=== PATIENT | male | born 1965 | race African-American/Black ===

== ENCOUNTER 2016-11-24 16:43 | Inpatient (IN) ==
[2016-11-24] MEDS ORDERED: cefTRIAXone 1,000 MG in SODIUM CHLORIDE 0.9% 100 ML IV STA (19:56)
[2016-11-24 20:01] LABS: Basophils % 0.2 % (0.0-0.8); Eosinophils % 0.4 % (0.00-10.9); Hematocrit 28.2 VOL% (42.0-52.0); Hemoglobin 9.5 GM/DL (14.0-18.0); Immature Granulocytes % 0.6 %; Immature Granulocytes Absolute 0.06 #; Lymphocytes # 2.4 10*3/uL (1.4-4.0); Lymphocytes % 23.1 % (21.2-54.2); Mean Corpuscular HGB Conc 33.7 GM/DL (32-36); Mean Corpuscular Hemoglobin 29 PG (27-34); Mean Corpuscular Volume 86.8 FL (87-102); Mean Platelet Volume 13.7 FL (9.6-12.0); Monocytes # 0.9 10*3/uL (0.11-0.8); Neutrophils # 6.8 10*3/uL (1.4-7.4); Neutrophils % 66.7 % (38.7-73.9); Platelet Count 116 T/CUMM (130-400); Red Blood Count 3.25 MC/CUMM (3.8-5.5); Red Cell Distribution Width 16.5 % (9.3-17.3); White Blood Count 10.2 T/CUMM (4-12)
[2016-11-24 20:21] LABS: Alanine Aminotransferase 23 U/L (16-61); Albumin 2.7 G/DL (3.4-5.0); Alkaline Phosphatase 71 U/L (45-117); Amylase 97 U/L (25-115); Aspartate Amino Transferase 19 U/L (0-37); Blood Urea Nitrogen 45 MG/DL (7-18); Calcium 8.8 MG/DL (8.5-10.1); Glucose 88 MG/DL (74-106); Magnesium 2.1 MG/DL (1.8-2.4); Osmolality,Calculated 287.5 MOS/KG (273-304); Potassium 3.8 MMOL/L (3.5-5.1); Sodium 139 MMOL/L (136-145); Total Protein 6.2 G/DL (6.4-8.3)
[2016-11-24] MEDS ORDERED: cefTRIAXone 1,000 MG VIAL ONE (20:21)
[2016-11-24] MEDS ORDERED: SODIUM CHLORIDE 0.9% 100 ML IV ONE (20:22)
[2016-11-24 21:03] LABS: Apearance,Urine CLEAR (Clear); Bacteria,Urine Occasional /HPF (Few); Bilirubin,Urine Negative (Negative); Blood, Urine Small mg/dL (Negative); Glucose,Urine (UA) Negative (Negative); Ketones,Urine Negative (Negative); Nitrite,Urine Negative (Negative); Protein,Urine 100 MG/DL; RBC,Urine 2 /HPF (0-4); Squamous Epithelial Cell,Urine Occasional /HPF (0-10); Urine Color Yellow (Yellow); Urine Urobilinogen < 2.0 EU/DL (0.2-1.0); WBC,Urine <1 /HPF (0-6)
[2016-11-24] MEDS ORDERED: ONDANSETRON 4 MG/2 ML VIAL IV PRN (22:56)
[2016-11-24] MEDS ORDERED: ACETAMINOPHEN 325 MG TABLET PO PRN (22:56)
[2016-11-25] MEDS ORDERED: LEVOFLOXACIN INJ 750 MG in PREMIX 1 EACH IV ONE (01:00)
[2016-11-25] MEDS: ALBUTEROL/IPRATROPIUM 3 ML NEB RESP TX SCH ×4 (01:20→19:27)
[2016-11-25] MEDS: metroNIDAZOLE INJ 500 MG in PREMIX 1 EACH IV SCH ×3 (04:08→21:00)
[2016-11-25 07:02] LABS: Basophils % 0.3 % (0.0-0.8); Eosinophils # 0.1 10*3/uL (0.0-0.87); Hematocrit 31.1 VOL% (42.0-52.0); Hemoglobin 10.5 GM/DL (14.0-18.0); Immature Granulocytes % 0.5 %; Immature Granulocytes Absolute 0.04 #; Lymphocytes # 2.1 10*3/uL (1.4-4.0); Lymphocytes % 24.3 % (21.2-54.2); Mean Corpuscular HGB Conc 33.8 GM/DL (32-36); Mean Corpuscular Hemoglobin 29 PG (27-34); Mean Corpuscular Volume 86.6 FL (87-102); Monocytes # 0.8 10*3/uL (0.11-0.8); Monocytes % 9.8 % (1.7-12.7); Neutrophils # 5.5 10*3/uL (1.4-7.4); Neutrophils % 64.1 % (38.7-73.9); Platelet Count 98 T/CUMM (130-400); Red Blood Count 3.59 MC/CUMM (3.8-5.5); Red Cell Distribution Width 16.8 % (9.3-17.3); White Blood Count 8.6 T/CUMM (4-12)
[2016-11-25 07:22] LABS: Giant Platelets Few; Hypochromasia 1+; Ovalocytes Slight; Platelet Estimate Decreased
[2016-11-25 07:31] LABS: Albumin 2.7 G/DL (3.4-5.0); Bilirubin,Total 0.5 MG/DL (0.2-1.0); Calcium 8.5 MG/DL (8.5-10.1); Osmolality,Calculated 286.7 MOS/KG (273-304); Potassium 3.9 MMOL/L (3.5-5.1); Total Protein 6.1 G/DL (6.4-8.3)
[2016-11-25] MEDS ORDERED: HYDROmorphone 2 MG/1 ML VIAL IV PRN (09:19)
[2016-11-25] MEDS: SODIUM CHLORIDE 0.9% 1,000 ML IV SCH (09:37)
[2016-11-25] MEDS: ASPIRIN EC 81 MG TABLET PO SCH (09:38)
[2016-11-25] MEDS: ENOXAPARIN 30 MG/0.3 ML SYRINGE SUBCUT SCH (09:38)
[2016-11-25] MEDS: CALCIUM ACETATE 667 MG CAPSULE PO SCH ×3 (09:38→16:03)
[2016-11-25] MEDS: SEVELAMER CARBONATE 800 MG TABLET PO SCH ×3 (09:38→16:03)
[2016-11-25] MEDS: SIMVASTATIN 10 MG TABLET PO SCH (09:39)
[2016-11-25] MEDS: ALFUZOSIN 10 MG TABLET PO SCH (09:39)
[2016-11-25] MEDS: PANTOPRAZOLE 40 MG TABLET PO SCH (09:39)
[2016-11-25] MEDS: predniSONE 10 MG TABLET PO SCH (09:39)
[2016-11-25] MEDS: METOPROLOL SUCCINATE XL 25 MG TABLET PO SCH (09:39)
[2016-11-25] MEDS: ALLOPURINOL 300 MG TABLET PO SCH (09:40)
[2016-11-25] MEDS ORDERED: HEPARIN 10,000 UNIT/10 ML VIAL IV PRN (11:37)
[2016-11-26] MEDS: ALBUTEROL/IPRATROPIUM 3 ML NEB RESP TX SCH ×4 (00:31→19:47)
[2016-11-26] MEDS: metroNIDAZOLE INJ 500 MG in PREMIX 1 EACH IV SCH ×3 (05:30→20:53)
[2016-11-26] MEDS: SODIUM CHLORIDE 0.9% 1,000 ML IV SCH ×2 (07:57)
[2016-11-26] MEDS: ALLOPURINOL 300 MG TABLET PO SCH (09:14)
[2016-11-26] MEDS: CALCIUM ACETATE 667 MG CAPSULE PO SCH ×3 (09:14→16:52)
[2016-11-26] MEDS: SIMVASTATIN 10 MG TABLET PO SCH (09:14)
[2016-11-26] MEDS: ENOXAPARIN 30 MG/0.3 ML SYRINGE SUBCUT SCH (09:14)
[2016-11-26] MEDS: ALFUZOSIN 10 MG TABLET PO SCH (09:14)
[2016-11-26] MEDS: ASPIRIN EC 81 MG TABLET PO SCH (09:14)
[2016-11-26] MEDS: PANTOPRAZOLE 40 MG TABLET PO SCH (09:15)
[2016-11-26] MEDS: SEVELAMER CARBONATE 800 MG TABLET PO SCH ×3 (09:15→16:52)
[2016-11-26] MEDS: METOPROLOL SUCCINATE XL 25 MG TABLET PO SCH (09:15)
[2016-11-26] MEDS: predniSONE 10 MG TABLET PO SCH (09:18)
[2016-11-27] MEDS: ALBUTEROL/IPRATROPIUM 3 ML NEB RESP TX SCH ×3 (00:32→13:29)
[2016-11-27] MEDS: metroNIDAZOLE INJ 500 MG in PREMIX 1 EACH IV SCH ×2 (05:06→13:37)
[2016-11-27] MEDS: CALCIUM ACETATE 667 MG CAPSULE PO SCH ×2 (08:29→13:36)
[2016-11-27] MEDS: ASPIRIN EC 81 MG TABLET PO SCH (08:29)
[2016-11-27] MEDS: ALFUZOSIN 10 MG TABLET PO SCH (08:29)
[2016-11-27] MEDS: ALLOPURINOL 300 MG TABLET PO SCH (08:29)
[2016-11-27] MEDS: SEVELAMER CARBONATE 800 MG TABLET PO SCH ×2 (08:29→13:34)
[2016-11-27] MEDS: PANTOPRAZOLE 40 MG TABLET PO SCH (08:30)
[2016-11-27] MEDS: SIMVASTATIN 10 MG TABLET PO SCH (08:30)
[2016-11-27] MEDS: METOPROLOL SUCCINATE XL 25 MG TABLET PO SCH (08:30)
[2016-11-27] MEDS: ENOXAPARIN 30 MG/0.3 ML SYRINGE SUBCUT SCH (08:31)
[2016-11-27] MEDS: predniSONE 10 MG TABLET PO SCH (08:33)
[2016-11-27] MEDS: LEVOFLOXACIN INJ 500 MG in PREMIX 1 EACH IV SCH ×2 (08:34→13:33)
[2016-11-27] MEDS ORDERED: cloNIDine 0.1 MG TABLET PO ONE (11:30)
[2016-11-27 14:26] VITALS: BP 164/89
== END 2016-11-27 14:50 | disposition home or self-care (01) | DRG 871 ==
LOC: EDUNIT# → EDBD → N.ED 16:43 → N.EDINP 22:41 → N.2E 11-25 00:01
PROVIDERS: ADMIT Internal Medicine Geriatric Medicine; ATTEND Internal Medicine Geriatric Medicine

== ENCOUNTER 2016-12-14 16:41 | Inpatient (IN) ==
[2016-12-14] MEDS ORDERED: MORPHINE 2 MG/1 ML SYRINGE IV STA (17:53)
[2016-12-14] MEDS ORDERED: SODIUM CHLORIDE 0.9% 250 ML IV STA (17:53)
[2016-12-14] MEDS ORDERED: PANTOPRAZOLE 40 MG VIAL IV STA (17:53)
[2016-12-14] MEDS ORDERED: ONDANSETRON 4 MG/2 ML VIAL IV STA (17:53)
[2016-12-14] MEDS ORDERED: ALUM/MAG/SIMETH/LIDO VISC 1:1 30 ML BOTTLE PO STA (17:53)
[2016-12-14 18:28] LABS: Apearance,Urine CLEAR (Clear); Bacteria,Urine Occasional /HPF (Few); Bilirubin,Urine Negative (Negative); Blood, Urine Negative (Negative); Glucose,Urine (UA) Negative (Negative); Hyaline Casts,Urine 1 /LPF (0-3); Ketones,Urine Negative (Negative); Nitrite,Urine Negative (Negative); Protein,Urine 100 MG/DL; RBC,Urine 1 /HPF (0-4); Sperm,Urine Occasional /HPF (Negative); Squamous Epithelial Cell,Urine Occasional /HPF (0-10); Urine Color Straw (Yellow); Urine Specific Gravity 1.008 (1.001-1.035); Urine Urobilinogen < 2.0 EU/DL (0.2-1.0); WBC,Urine 1 /HPF (0-6)
[2016-12-14] MEDS ORDERED: ONDANSETRON 4 MG/2 ML VIAL ONE (18:28)
[2016-12-14] MEDS ORDERED: MORPHINE 2 MG/1 ML SYRINGE ONE (18:29)
[2016-12-14] MEDS ORDERED: PANTOPRAZOLE 40 MG VIAL IV ONE (18:29)
[2016-12-14 19:09] LABS: Basophils % 0.2 % (0.0-0.8); Eosinophils # 0.1 10*3/uL (0.0-0.87); Eosinophils % 0.6 % (0.00-10.9); Hematocrit 18.5 VOL% (42.0-52.0); Immature Granulocytes % 0.5 %; Immature Granulocytes Absolute 0.04 #; Lymphocytes % 23.3 % (21.2-54.2); Mean Corpuscular HGB Conc 31.9 GM/DL (32-36); Mean Corpuscular Hemoglobin 29 PG (27-34); Monocytes # 0.5 10*3/uL (0.11-0.8); Monocytes % 6.3 % (1.7-12.7); Neutrophils % 69.1 % (38.7-73.9); Platelet Count 151 T/CUMM (130-400); Red Blood Count 2.01 MC/CUMM (3.8-5.5); Red Cell Distribution Width 18.9 % (9.3-17.3); White Blood Count 8.6 T/CUMM (4-12)
[2016-12-14 19:16] LABS: Hemoglobin 5.9 GM/DL (14.0-18.0)
[2016-12-14] MEDS ORDERED: VANCOMYCIN INJ 1,000 MG in SODIUM CHLORIDE 0.9% 250 ML IV STA (19:38)
[2016-12-14] MEDS ORDERED: cefTRIAXone 1,000 MG in SODIUM CHLORIDE 0.9% 100 ML IV STA (19:38)
[2016-12-14 19:43] LABS: Lactic Acid 0.9 MMOL/L (0.4-2.0)
[2016-12-14 19:45] LABS: Albumin 2.2 G/DL (3.4-5.0); Bilirubin,Total 0.4 MG/DL (0.2-1.0); Calcium 5.9 MG/DL (8.5-10.1); Magnesium 1.5 MG/DL (1.8-2.4); Potassium 2.6 MMOL/L (3.5-5.1); Total Protein 4.5 G/DL (6.4-8.3)
[2016-12-14 19:51] LABS: Troponin I Only 0.374 NG/ML (0.00-0.045)
[2016-12-14] MEDS ORDERED: POTASSIUM CHLORIDE 20 MEQ TABLET PO STA (20:15)
[2016-12-14] MEDS ORDERED: MAGNESIUM SULF RIDER 2 GM in PREMIX 1 EACH IV STA (20:15)
[2016-12-14] MEDS ORDERED: DEXTROSE 50% 25 GM/50 ML VIAL IV STA (20:15)
[2016-12-14] MEDS ORDERED: cefTRIAXone 1,000 MG VIAL ONE (20:16)
[2016-12-14] MEDS ORDERED: VANCOMYCIN 1,000 MG VIAL ONE (20:16)
[2016-12-14] MEDS ORDERED: DEXTROSE 50% 25 GM/50 ML SYRINGE IV ONE (20:16)
[2016-12-14] MEDS ORDERED: ONDANSETRON 4 MG/2 ML VIAL IV PRN (21:28)
[2016-12-14] MEDS ORDERED: POTASSIUM CHLORIDE 20 MEQ TABLET PO ONE (21:38)
[2016-12-14] MEDS: HEPARIN 5,000 UNIT/1 ML VIAL SUBCUT SCH (23:47)
[2016-12-15] MEDS: AZITHROMYCIN INJ 500 MG in SODIUM CHLORIDE 0.9% 250 ML IV SCH (00:59)
[2016-12-15 01:38] LABS: Basophils # 0.1 10*3/uL (0.0-0.2); Basophils % 0.5 % (0.0-0.8); Eosinophils # 0.1 10*3/uL (0.0-0.87); Eosinophils % 0.8 % (0.00-10.9); Hematocrit 27.3 VOL% (42.0-52.0); Immature Granulocytes % 0.4 %; Immature Granulocytes Absolute 0.05 #; Lymphocytes # 3.9 10*3/uL (1.4-4.0); Lymphocytes % 30.1 % (21.2-54.2); Mean Corpuscular Hemoglobin 29 PG (27-34); Mean Corpuscular Volume 88.6 FL (87-102); Mean Platelet Volume 12.3 FL (9.6-12.0); Monocytes # 0.9 10*3/uL (0.11-0.8); Neutrophils % 61.2 % (38.7-73.9); Platelet Count 223 T/CUMM (130-400); Red Blood Count 3.08 MC/CUMM (3.8-5.5); Red Cell Distribution Width 18.6 % (9.3-17.3)
[2016-12-15 09:53] LABS: Osmolality,Calculated 301.7 MOS/KG (273-304); Potassium 4.4 MMOL/L (3.5-5.1)
[2016-12-15] MEDS: PROMETHAZINE 25 MG TABLET PO SCH ×4 (13:24→23:41)
[2016-12-15] MEDS: METOPROLOL SUCCINATE XL 25 MG TABLET PO SCH (13:30)
[2016-12-15] MEDS: HEPARIN 5,000 UNIT/1 ML VIAL SUBCUT SCH ×3 (13:55→21:54)
[2016-12-15] MEDS: SEVELAMER CARBONATE 800 MG TABLET PO SCH ×3 (13:56→18:00)
[2016-12-15] MEDS: CALCIUM ACETATE 667 MG CAPSULE PO SCH ×3 (13:56→18:00)
[2016-12-15] MEDS ORDERED: HEPARIN 10,000 UNIT/10 ML VIAL IV PRN (14:29)
[2016-12-15] MEDS: PANTOPRAZOLE 40 MG TABLET PO SCH (15:24)
[2016-12-15] MEDS: LOPERAMIDE 2 MG CAPSULE PO SCH (15:24)
[2016-12-15] MEDS: predniSONE 10 MG TABLET PO SCH (15:24)
[2016-12-15] MEDS: ASPIRIN EC 81 MG TABLET PO SCH (15:24)
[2016-12-15] MEDS: SIMVASTATIN 10 MG TABLET PO SCH (15:25)
[2016-12-15] MEDS: ALFUZOSIN 10 MG TABLET PO SCH (15:25)
[2016-12-15] MEDS: ALLOPURINOL 300 MG TABLET PO SCH (15:25)
[2016-12-15] MEDS: cefTRIAXone 1,000 MG in SYRINGE 1 EACH IV SCH (20:05)
[2016-12-16] MEDS: AZITHROMYCIN INJ 500 MG in SODIUM CHLORIDE 0.9% 250 ML IV SCH (00:09)
[2016-12-16 04:53] LABS: Basophils # 0.1 10*3/uL (0.0-0.2); Basophils % 0.7 % (0.0-0.8); Eosinophils # 0.3 10*3/uL (0.0-0.87); Eosinophils % 2.4 % (0.00-10.9); Hematocrit 35.8 VOL% (42.0-52.0); Immature Granulocytes % 0.3 %; Immature Granulocytes Absolute 0.04 #; Lymphocytes # 3.4 10*3/uL (1.4-4.0); Lymphocytes % 28.4 % (21.2-54.2); Mean Corpuscular HGB Conc 33.5 GM/DL (32-36); Mean Corpuscular Hemoglobin 29 PG (27-34); Mean Corpuscular Volume 87.3 FL (87-102); Monocytes # 1.1 10*3/uL (0.11-0.8); Monocytes % 9.4 % (1.7-12.7); Neutrophils % 58.8 % (38.7-73.9); Platelet Count 193 T/CUMM (130-400); Red Cell Distribution Width 16.9 % (9.3-17.3); White Blood Count 11.9 T/CUMM (4-12)
[2016-12-16 05:23] LABS: Calcium 8.6 MG/DL (8.5-10.1); Magnesium 2.5 MG/DL (1.8-2.4); Osmolality,Calculated 283.4 MOS/KG (273-304); Potassium 4.2 MMOL/L (3.5-5.1)
[2016-12-16] MEDS: PROMETHAZINE 25 MG TABLET PO SCH ×3 (06:17→17:24)
[2016-12-16] MEDS: HEPARIN 5,000 UNIT/1 ML VIAL SUBCUT SCH ×2 (06:17→14:52)
[2016-12-16] MEDS: ALFUZOSIN 10 MG TABLET PO SCH (09:56)
[2016-12-16] MEDS: CALCIUM ACETATE 667 MG CAPSULE PO SCH ×3 (09:57→17:23)
[2016-12-16] MEDS: LOPERAMIDE 2 MG CAPSULE PO SCH (09:59)
[2016-12-16] MEDS: predniSONE 10 MG TABLET PO SCH (09:59)
[2016-12-16] MEDS: ALLOPURINOL 300 MG TABLET PO SCH (09:59)
[2016-12-16] MEDS: METOPROLOL SUCCINATE XL 25 MG TABLET PO SCH (09:59)
[2016-12-16] MEDS: PANTOPRAZOLE 40 MG TABLET PO SCH (09:59)
[2016-12-16] MEDS: ASPIRIN EC 81 MG TABLET PO SCH (09:59)
[2016-12-16] MEDS: SIMVASTATIN 10 MG TABLET PO SCH (09:59)
[2016-12-16] MEDS: SEVELAMER CARBONATE 800 MG TABLET PO SCH ×3 (09:59→17:22)
[2016-12-16] MEDS: cefTRIAXone 1,000 MG in SYRINGE 1 EACH IV SCH (21:55)
[2016-12-17] MEDS: HEPARIN 5,000 UNIT/1 ML VIAL SUBCUT SCH ×3 (00:08→14:21)
[2016-12-17] MEDS: AZITHROMYCIN INJ 500 MG in SODIUM CHLORIDE 0.9% 250 ML IV SCH (00:09)
[2016-12-17] MEDS: PROMETHAZINE 25 MG TABLET PO SCH ×3 (00:09→12:23)
[2016-12-17 05:59] LABS: Basophils # 0.1 10*3/uL (0.0-0.2); Basophils % 0.6 % (0.0-0.8); Eosinophils # 0.3 10*3/uL (0.0-0.87); Eosinophils % 2.7 % (0.00-10.9); Hematocrit 37.5 VOL% (42.0-52.0); Hemoglobin 12.5 GM/DL (14.0-18.0); Immature Granulocytes % 0.3 %; Immature Granulocytes Absolute 0.03 #; Lymphocytes # 4.1 10*3/uL (1.4-4.0); Lymphocytes % 35.4 % (21.2-54.2); Mean Corpuscular HGB Conc 33.3 GM/DL (32-36); Mean Corpuscular Hemoglobin 29 PG (27-34); Mean Corpuscular Volume 87.8 FL (87-102); Mean Platelet Volume 13.1 FL (9.6-12.0); Monocytes # 1.2 10*3/uL (0.11-0.8); Monocytes % 10.3 % (1.7-12.7); Neutrophils # 5.8 10*3/uL (1.4-7.4); Neutrophils % 50.7 % (38.7-73.9); Platelet Count 177 T/CUMM (130-400); Red Blood Count 4.27 MC/CUMM (3.8-5.5); Red Cell Distribution Width 16.8 % (9.3-17.3); White Blood Count 11.5 T/CUMM (4-12)
[2016-12-17 06:29] LABS: Calcium 8.7 MG/DL (8.5-10.1); Magnesium 2.6 MG/DL (1.8-2.4); Osmolality,Calculated 279.7 MOS/KG (273-304); Potassium 4.3 MMOL/L (3.5-5.1)
[2016-12-17] MEDS: SEVELAMER CARBONATE 800 MG TABLET PO SCH ×2 (09:50→12:22)
[2016-12-17] MEDS: METOPROLOL SUCCINATE XL 25 MG TABLET PO SCH (09:50)
[2016-12-17] MEDS: predniSONE 10 MG TABLET PO SCH (09:50)
[2016-12-17] MEDS: SIMVASTATIN 10 MG TABLET PO SCH (09:50)
[2016-12-17] MEDS: ALFUZOSIN 10 MG TABLET PO SCH (09:50)
[2016-12-17] MEDS: CALCIUM ACETATE 667 MG CAPSULE PO SCH ×2 (09:50→12:22)
[2016-12-17] MEDS: ASPIRIN EC 81 MG TABLET PO SCH (09:50)
[2016-12-17] MEDS: ALLOPURINOL 300 MG TABLET PO SCH (09:50)
[2016-12-17] MEDS: PANTOPRAZOLE 40 MG TABLET PO SCH (09:50)
[2016-12-17] MEDS: LOPERAMIDE 2 MG CAPSULE PO SCH (09:50)
[2016-12-17 12:00] VITALS: BP 148/89
== END 2016-12-17 16:35 | disposition home or self-care (01) | DRG 193 ==
LOC: EDUNIT# → EDBD → N.ED 16:41 → N.EDINP 21:11 → N.TELES 21:34
PROVIDERS: ADMIT Internal Medicine; ATTEND Internal Medicine

== ENCOUNTER 2017-05-28 11:05 | Inpatient (IN) ==
[2017-05-28] MEDS ORDERED: ACETAMINOPHEN 500 MG TABLET PO STA (12:17)
[2017-05-28] MEDS ORDERED: ACETAMINOPHEN 500 MG TABLET ONE (12:18)
[2017-05-28] MEDS ORDERED: ALBUTEROL/IPRATROPIUM 3 ML NEB RESP TX STA (12:22)
[2017-05-28] MEDS ORDERED: LEVOFLOXACIN INJ 750 MG in PREMIX 1 EACH IV STA (12:28)
[2017-05-28 12:36] LABS: Basophils % 0.2 % (0.0-0.8); Eosinophils % 0.2 % (0.00-10.9); Hematocrit 31.1 VOL% (42.0-52.0); Hemoglobin 10.3 GM/DL (14.0-18.0); Immature Granulocytes % 0.8 %; Immature Granulocytes Absolute 0.08 #; Lymphocytes # 0.5 10*3/uL (1.4-4.0); Lymphocytes % 4.3 % (21.2-54.2); Mean Corpuscular HGB Conc 33.1 GM/DL (32-36); Mean Corpuscular Hemoglobin 30 PG (27-34); Mean Corpuscular Volume 89.1 FL (87-102); Mean Platelet Volume 13.5 FL (9.6-12.0); Monocytes % 0.2 % (1.7-12.7); Neutrophils # 10.1 10*3/uL (1.4-7.4); Neutrophils % 94.3 % (38.7-73.9); Platelet Count 161 T/CUMM (130-400); Red Blood Count 3.49 MC/CUMM (3.8-5.5); Red Cell Distribution Width 16.4 % (9.3-17.3); White Blood Count 10.7 T/CUMM (4-12)
[2017-05-28 12:56] LABS: PT Patient Result 10.7 SECS
[2017-05-28 12:58] LABS: Lactic Acid 3.6 MMOL/L (0.4-2.0)
[2017-05-28] MEDS ORDERED: LEVOFLOXACIN INJ 150 ML IV ONE (13:04)
[2017-05-28 13:07] LABS: Alanine Aminotransferase 15 U/L (16-61); Albumin 3.1 G/DL (3.4-5.0); Alkaline Phosphatase 64 U/L (45-117); Amylase 172 U/L (25-115); Aspartate Amino Transferase 23 U/L (0-37); Bilirubin,Total < 0.39 MG/DL (0.2-1.0); Blood Urea Nitrogen 31 MG/DL (7-18); Calcium 8.8 MG/DL (8.5-10.1); Glucose 90 MG/DL (74-106); Osmolality,Calculated 279.8 MOS/KG (273-304); Potassium 3.6 MMOL/L (3.5-5.1); Sodium 137 MMOL/L (136-145); Total Protein 7.3 G/DL (6.4-8.3)
[2017-05-28 14:12] LABS: Band Neutrophils 10 % (0-10); Lymphocytes 4 % (20-55); Segmented Neutrophils 85 % (50-85); Total Cells Counted 100
[2017-05-28 14:13] LABS: Ovalocytes Slight; Platelet Estimate Adequate; Polychromasia Slight
[2017-05-28] MEDS ORDERED: ALBUTEROL 2.5 MG/3 ML NEB RESP TX PRN (14:15)
[2017-05-28] MEDS ORDERED: LOPERAMIDE 2 MG CAPSULE PO PRN (14:18)
[2017-05-28] MEDS ORDERED: NICOTINE 21 MG/24 HR PATCH TRANSDERM PRN (14:19)
[2017-05-28] MEDS ORDERED: guaiFENesin/DM ER 600-30 MG TABLET PO PRN (14:19)
[2017-05-28] MEDS ORDERED: ACETAMINOPHEN 325 MG TABLET PO PRN (14:19)
[2017-05-28] MEDS ORDERED: MORPHINE 4 MG/1 ML VIAL IV PRN (14:19)
[2017-05-28] MEDS ORDERED: ONDANSETRON 4 MG/2 ML VIAL IV PRN (14:19)
[2017-05-28] MEDS ORDERED: ZALEPLON 5 MG CAPSULE PO PRN (14:19)
[2017-05-28] MEDS ORDERED: PIPERACILLIN/TAZOBACTAM 3,375 MG in SODIUM CHLORIDE 0.9% 100 ML IV SCH (14:30)
[2017-05-28] MEDS ORDERED: VANCOMYCIN INJ 500 MG in SODIUM CHLORIDE 0.9% 100 ML IV PRN (15:11)
[2017-05-28] MEDS: methylPREDNISolone SOD SUC 40 MG/1 ML VIAL IV SCH ×2 (16:56→21:01)
[2017-05-28] MEDS: SEVELAMER CARBONATE 800 MG TABLET PO SCH (16:56)
[2017-05-28] MEDS: PIPERACILLIN/TAZOBACTAM 3,375 MG in SODIUM CHLORIDE 0.9% 100 ML IV SCH (17:00)
[2017-05-28 18:19] LABS: Lactic Acid 2.3 MMOL/L (0.4-2.0)
[2017-05-28] MEDS: ALBUTEROL/IPRATROPIUM 3 ML NEB RESP TX SCH (18:52)
[2017-05-28] MEDS ORDERED: VANCOMYCIN INJ 1,250 MG in SODIUM CHLORIDE 0.9% 250 ML IV ONE (20:00)
[2017-05-28] MEDS: DOCUSATE SODIUM 100 MG CAPSULE PO SCH (21:10)
[2017-05-28] MEDS: diphenhydrAMINE CAP 25 MG CAPSULE PO PRN (21:55)
[2017-05-29] MEDS: ALBUTEROL/IPRATROPIUM 3 ML NEB RESP TX SCH ×4 (01:12→19:04)
[2017-05-29] MEDS: methylPREDNISolone SOD SUC 40 MG/1 ML VIAL IV SCH ×4 (02:42→22:13)
[2017-05-29] MEDS: PIPERACILLIN/TAZOBACTAM 3,375 MG in SODIUM CHLORIDE 0.9% 100 ML IV SCH ×2 (02:45→16:17)
[2017-05-29 05:48] LABS: Basophils % 0.1 % (0.0-0.8); Hematocrit 32.6 VOL% (42.0-52.0); Hemoglobin 10.7 GM/DL (14.0-18.0); Immature Granulocytes % 0.6 %; Immature Granulocytes Absolute 0.12 #; Lymphocytes # 0.6 10*3/uL (1.4-4.0); Lymphocytes % 2.9 % (21.2-54.2); Mean Corpuscular HGB Conc 32.8 GM/DL (32-36); Mean Corpuscular Hemoglobin 30 PG (27-34); Mean Corpuscular Volume 90.8 FL (87-102); Monocytes # 0.1 10*3/uL (0.11-0.8); Monocytes % 0.6 % (1.7-12.7); Neutrophils # 20.1 10*3/uL (1.4-7.4); Neutrophils % 95.8 % (38.7-73.9); Platelet Count 156 T/CUMM (130-400); Red Blood Count 3.59 MC/CUMM (3.8-5.5); Red Cell Distribution Width 16.4 % (9.3-17.3)
[2017-05-29 06:36] LABS: Albumin 3.1 G/DL (3.4-5.0); Bilirubin,Total 0.4 MG/DL (0.2-1.0); Calcium 8.4 MG/DL (8.5-10.1); Osmolality,Calculated 284.1 MOS/KG (273-304); Potassium 5.7 MMOL/L (3.5-5.1); Total Protein 6.8 G/DL (6.4-8.3)
[2017-05-29 07:42] LABS: Band Neutrophils 2 % (0-10); Hypochromasia Slight; Lymphocytes 9 % (20-55); Platelet Estimate Adequate; Segmented Neutrophils 88 % (50-85); Total Cells Counted 100
[2017-05-29] MEDS: ASPIRIN EC 81 MG TABLET PO SCH (09:00)
[2017-05-29] MEDS: ALFUZOSIN 10 MG TABLET PO SCH (09:00)
[2017-05-29] MEDS: SEVELAMER CARBONATE 800 MG TABLET PO SCH ×3 (09:00→16:17)
[2017-05-29] MEDS: METOPROLOL SUCCINATE XL 25 MG TABLET PO SCH (09:00)
[2017-05-29] MEDS: ALLOPURINOL 300 MG TABLET PO SCH (09:00)
[2017-05-29] MEDS: SIMVASTATIN 40 MG TABLET PO SCH (09:00)
[2017-05-29] MEDS: CINACALCET 30 MG TABLET PO SCH (09:00)
[2017-05-29] MEDS: PANTOPRAZOLE 40 MG TABLET PO SCH (09:01)
[2017-05-29] MEDS: MEGESTROL ES 125 MG/ML 30 ML/BOTTLE PO SCH (09:01)
[2017-05-29] MEDS: DOCUSATE SODIUM 100 MG CAPSULE PO SCH ×2 (09:01→22:16)
[2017-05-30] MEDS: ALBUTEROL/IPRATROPIUM 3 ML NEB RESP TX SCH ×4 (00:25→19:17)
[2017-05-30] MEDS: methylPREDNISolone SOD SUC 40 MG/1 ML VIAL IV SCH ×5 (03:58→21:33)
[2017-05-30] MEDS: PIPERACILLIN/TAZOBACTAM 3,375 MG in SODIUM CHLORIDE 0.9% 100 ML IV SCH ×2 (04:09→15:44)
[2017-05-30 06:49] LABS: Barbiturates Screen,Urine Negative (Negative); Benzodiazepines Screen,Urine Negative (Negative); Cannabinoid Screen,Urine Negative (Negative); Opiate Screen,Urine Negative (Negative); Phencyclidine Screen,Urine Negative (Negative)
[2017-05-30] MEDS: ASPIRIN EC 81 MG TABLET PO SCH ×2 (11:32→12:28)
[2017-05-30] MEDS: SEVELAMER CARBONATE 800 MG TABLET PO SCH ×3 (11:32→17:40)
[2017-05-30] MEDS: DOCUSATE SODIUM 100 MG CAPSULE PO SCH ×3 (11:32→21:35)
[2017-05-30] MEDS: PANTOPRAZOLE 40 MG TABLET PO SCH ×2 (11:33→12:27)
[2017-05-30] MEDS: SIMVASTATIN 40 MG TABLET PO SCH ×2 (11:33→12:28)
[2017-05-30] MEDS: ALFUZOSIN 10 MG TABLET PO SCH ×2 (11:33→12:28)
[2017-05-30] MEDS: METOPROLOL SUCCINATE XL 25 MG TABLET PO SCH ×2 (11:33→12:27)
[2017-05-30] MEDS: MEGESTROL ES 125 MG/ML 30 ML/BOTTLE PO SCH ×2 (11:33→12:29)
[2017-05-30] MEDS: CINACALCET 30 MG TABLET PO SCH ×2 (11:33→12:28)
[2017-05-30] MEDS: ALLOPURINOL 300 MG TABLET PO SCH ×2 (11:34→12:28)
[2017-05-30] MEDS: diphenhydrAMINE CAP 25 MG CAPSULE PO PRN (20:02)
[2017-05-31] MEDS: ALBUTEROL/IPRATROPIUM 3 ML NEB RESP TX SCH ×4 (01:00→18:40)
[2017-05-31] MEDS ORDERED: LIDOCAINE/PRILOCAINE CREAM 5 GM TUBE TOP PRN (02:49)
[2017-05-31] MEDS: methylPREDNISolone SOD SUC 40 MG/1 ML VIAL IV SCH ×2 (03:50→08:43)
[2017-05-31] MEDS: PIPERACILLIN/TAZOBACTAM 3,375 MG in SODIUM CHLORIDE 0.9% 100 ML IV SCH (04:04)
[2017-05-31 06:46] LABS: Basophils % 0.1 % (0.0-0.8); Hematocrit 29.5 VOL% (42.0-52.0); Hemoglobin 9.7 GM/DL (14.0-18.0); Immature Granulocytes % 0.8 %; Immature Granulocytes Absolute 0.14 #; Lymphocytes # 0.7 10*3/uL (1.4-4.0); Lymphocytes % 4.1 % (21.2-54.2); Mean Corpuscular HGB Conc 32.9 GM/DL (32-36); Mean Corpuscular Hemoglobin 30 PG (27-34); Mean Corpuscular Volume 89.9 FL (87-102); Mean Platelet Volume 14.2 FL (9.6-12.0); Monocytes # 0.1 10*3/uL (0.11-0.8); Monocytes % 0.8 % (1.7-12.7); Neutrophils # 15.8 10*3/uL (1.4-7.4); Neutrophils % 94.2 % (38.7-73.9); Platelet Count 132 T/CUMM (130-400); Red Blood Count 3.28 MC/CUMM (3.8-5.5); Red Cell Distribution Width 16.2 % (9.3-17.3); White Blood Count 16.8 T/CUMM (4-12)
[2017-05-31 07:06] LABS: Hypochromasia Slight; Lymphocytes 3 % (20-55); Microcytosis 1+; Segmented Neutrophils 96 % (50-85); Total Cells Counted 100
[2017-05-31 07:07] LABS: Ovalocytes Slight; Platelet Estimate Adequate
[2017-05-31 07:22] LABS: Albumin 2.9 G/DL (3.4-5.0); Bilirubin,Total 0.5 MG/DL (0.2-1.0); Osmolality,Calculated 317.5 MOS/KG (273-304); Total Protein 6.4 G/DL (6.4-8.3)
[2017-05-31 07:25] LABS: Potassium 6.2 MMOL/L (3.5-5.1)
[2017-05-31] MEDS ORDERED: LIDOCAINE/PRILOCAINE CREAM 5 GM TUBE TOP SCH (07:30)
[2017-05-31] MEDS: MEGESTROL ES 125 MG/ML 30 ML/BOTTLE PO SCH (08:41)
[2017-05-31] MEDS: PANTOPRAZOLE 40 MG TABLET PO SCH (08:42)
[2017-05-31] MEDS: SIMVASTATIN 40 MG TABLET PO SCH (08:42)
[2017-05-31] MEDS: METOPROLOL SUCCINATE XL 25 MG TABLET PO SCH (08:42)
[2017-05-31] MEDS: ALFUZOSIN 10 MG TABLET PO SCH (08:42)
[2017-05-31] MEDS: ALLOPURINOL 300 MG TABLET PO SCH (08:43)
[2017-05-31] MEDS: SEVELAMER CARBONATE 800 MG TABLET PO SCH ×3 (08:43→16:46)
[2017-05-31] MEDS: DOCUSATE SODIUM 100 MG CAPSULE PO SCH ×2 (08:43→21:22)
[2017-05-31] MEDS: ASPIRIN EC 81 MG TABLET PO SCH (08:43)
[2017-05-31] MEDS: CINACALCET 30 MG TABLET PO SCH (08:44)
[2017-05-31] MEDS ORDERED: GENTAMICIN INJ 140 MG in SODIUM CHLORIDE 0.9% 100 ML IV PRN (12:53)
[2017-05-31] MEDS ORDERED: GENTAMICIN INJ 180 MG in SODIUM CHLORIDE 0.9% 100 ML IV ONE (14:00)
[2017-05-31] MEDS ORDERED: methylPREDNISolone SOD SUC 40 MG/1 ML VIAL IV SCH (21:00)
[2017-06-01] MEDS: ALBUTEROL/IPRATROPIUM 3 ML NEB RESP TX SCH ×3 (07:23→12:40)
[2017-06-01 07:53] LABS: Basophils % 0.1 % (0.0-0.8); Hematocrit 33.8 VOL% (42.0-52.0); Hemoglobin 11.5 GM/DL (14.0-18.0); Immature Granulocytes % 0.8 %; Immature Granulocytes Absolute 0.13 #; Lymphocytes # 2.5 10*3/uL (1.4-4.0); Lymphocytes % 15.9 % (21.2-54.2); Mean Corpuscular Hemoglobin 30 PG (27-34); Monocytes # 0.8 10*3/uL (0.11-0.8); Neutrophils # 12.3 10*3/uL (1.4-7.4); Neutrophils % 78.2 % (38.7-73.9); Platelet Count 165 T/CUMM (130-400); Red Blood Count 3.84 MC/CUMM (3.8-5.5); Red Cell Distribution Width 16.4 % (9.3-17.3); White Blood Count 15.7 T/CUMM (4-12)
[2017-06-01 08:23] LABS: Calcium 8.4 MG/DL (8.5-10.1); Osmolality,Calculated 316.3 MOS/KG (273-304); Potassium 5.3 MMOL/L (3.5-5.1)
[2017-06-01] MEDS ORDERED: predniSONE 10 MG TABLET PO SCH (09:00)
[2017-06-01] MEDS: CINACALCET 30 MG TABLET PO SCH (09:21)
[2017-06-01] MEDS: PANTOPRAZOLE 40 MG TABLET PO SCH (09:21)
[2017-06-01] MEDS: ALFUZOSIN 10 MG TABLET PO SCH (09:21)
[2017-06-01] MEDS: MEGESTROL ES 125 MG/ML 30 ML/BOTTLE PO SCH (09:21)
[2017-06-01] MEDS: ALLOPURINOL 300 MG TABLET PO SCH (09:22)
[2017-06-01] MEDS: SIMVASTATIN 40 MG TABLET PO SCH (09:22)
[2017-06-01] MEDS: SEVELAMER CARBONATE 800 MG TABLET PO SCH ×2 (09:22→14:03)
[2017-06-01] MEDS: ASPIRIN EC 81 MG TABLET PO SCH (09:22)
[2017-06-01] MEDS: DOCUSATE SODIUM 100 MG CAPSULE PO SCH (09:22)
[2017-06-01] MEDS: METOPROLOL SUCCINATE XL 25 MG TABLET PO SCH (09:22)
[2017-06-01 16:30] VITALS: BP 138/65
[2017-06-02] MEDS ORDERED: CIPROFLOXACIN 500 MG TABLET PO SCH (09:00)
== END 2017-06-01 16:50 | disposition home or self-care (01) | DRG 252 ==
LOC: N.ED 11:05 → SUATTDRO 14:17 → N.EDINP 14:17 → N.2E 14:57 → UNDODISIN 05-31 10:53
PROVIDERS: ADMIT Hospitalist; ATTEND Internal Medicine

== ENCOUNTER 2017-10-13 06:04 | Inpatient (IN) ==
[2017-10-13] MEDS ORDERED: ONDANSETRON 4 MG/2 ML VIAL IV STA ×2 (06:37→08:39)
[2017-10-13 06:56] LABS: Basophils # 0.1 10*3/uL (0.0-0.2); Basophils % 0.3 % (0.0-0.8); Eosinophils # 0.1 10*3/uL (0.0-0.87); Eosinophils % 0.5 % (0.00-10.9); Hematocrit 32.4 VOL% (42.0-52.0); Hemoglobin 10.4 GM/DL (14.0-18.0); Immature Granulocytes % 0.3 %; Immature Granulocytes Absolute 0.05 #; Lymphocytes # 3.1 10*3/uL (1.4-4.0); Lymphocytes % 20.4 % (21.2-54.2); Mean Corpuscular HGB Conc 32.1 GM/DL (32-36); Mean Corpuscular Hemoglobin 32 PG (27-34); Mean Corpuscular Volume 100.3 FL (87-102); Mean Platelet Volume 12.6 FL (9.6-12.0); Monocytes # 1.3 10*3/uL (0.11-0.8); Monocytes % 8.4 % (1.7-12.7); Neutrophils # 10.4 10*3/uL (1.4-7.4); Neutrophils % 70.1 % (38.7-73.9); Platelet Count 170 T/CUMM (130-400); Red Blood Count 3.23 MC/CUMM (3.8-5.5); Red Cell Distribution Width 15.4 % (9.3-17.3); White Blood Count 14.9 T/CUMM (4-12)
[2017-10-13 07:00] LABS: Apearance,Urine Turbid (Clear); Bilirubin,Urine Negative (Negative); Glucose,Urine (UA) Negative (Negative); Ketones,Urine Negative (Negative); Nitrite,Urine Negative (Negative); Protein,Urine >500 MG/DL; RBC,Urine 1562 /HPF (0-4); Squamous Epithelial Cell,Urine Few /HPF (0-10); Urine Color Amber (Yellow); Urine Specific Gravity 1.005 (1.001-1.035); WBC,Urine 17425 /HPF (0-6)
[2017-10-13 07:01] LABS: Blood, Urine Large mg/dL (Negative); Urine Urobilinogen 0.2 EU/DL (0.2-1.0)
[2017-10-13 07:22] LABS: Alanine Aminotransferase 19 U/L (16-61); Albumin 3.3 G/DL (3.4-5.0); Alkaline Phosphatase 63 U/L (45-117); Aspartate Amino Transferase 21 U/L (0-37); Bilirubin,Total < 0.39 MG/DL (0.2-1.0); Blood Urea Nitrogen 58 MG/DL (7-18); Glucose 90 MG/DL (74-106); Osmolality,Calculated 298.1 MOS/KG (273-304); Potassium 3.8 MMOL/L (3.5-5.1); Sodium 142 MMOL/L (136-145); Total Protein 6.8 G/DL (6.4-8.3)
[2017-10-13] MEDS ORDERED: ACETAMINOPHEN 325 MG TABLET PO PRN (08:36)
[2017-10-13] MEDS ORDERED: ONDANSETRON 4 MG/2 ML VIAL IV PRN (08:36)
[2017-10-13] MEDS ORDERED: BISACODYL 5 MG TABLET PO PRN (08:36)
[2017-10-13] MEDS ORDERED: HYDROmorphone 2 MG/1 ML VIAL IV STA (08:39)
[2017-10-13] MEDS ORDERED: PROMETHAZINE 25 MG TABLET PO PRN (08:40)
[2017-10-13] MEDS ORDERED: SILDENAFIL 20 MG TABLET PO PRN (08:40)
[2017-10-13] MEDS ORDERED: MEGESTROL ES 125 MG/ML 30 ML/BOTTLE PO SCH (09:00)
[2017-10-13] MEDS ORDERED: cefTAZidime 500 MG in SYRINGE 1 EACH IV SCH (09:00)
[2017-10-13] MEDS: ALLOPURINOL 300 MG TABLET PO SCH (11:42)
[2017-10-13] MEDS: METOPROLOL SUCCINATE XL 25 MG TABLET PO SCH (11:43)
[2017-10-13] MEDS: ALFUZOSIN 10 MG TABLET PO SCH (11:43)
[2017-10-13] MEDS: ASPIRIN EC 81 MG TABLET PO SCH (11:43)
[2017-10-13] MEDS: CINACALCET 30 MG TABLET PO SCH (11:43)
[2017-10-13] MEDS: PANTOPRAZOLE 40 MG TABLET PO SCH (11:45)
[2017-10-13] MEDS: SEVELAMER CARBONATE 800 MG TABLET PO SCH ×2 (11:46→17:40)
[2017-10-13] MEDS: predniSONE 10 MG TABLET PO SCH (11:47)
[2017-10-13] MEDS: SIMVASTATIN 40 MG TABLET PO SCH (11:48)
[2017-10-13] MEDS: cefTAZidime 500 MG in SYRINGE 1 EACH IV SCH ×2 (14:12→15:17)
[2017-10-13] MEDS ORDERED: MEROPENEM 500 MG in SYRINGE 1 EACH IV SCH (16:30)
[2017-10-14 06:41] LABS: Basophils % 0.2 % (0.0-0.8); Eosinophils % 0.2 % (0.00-10.9); Hematocrit 29.7 VOL% (42.0-52.0); Hemoglobin 9.7 GM/DL (14.0-18.0); Immature Granulocytes % 1.5 %; Immature Granulocytes Absolute 0.26 #; Lymphocytes # 2.6 10*3/uL (1.4-4.0); Lymphocytes % 14.7 % (21.2-54.2); Mean Corpuscular HGB Conc 32.7 GM/DL (32-36); Mean Corpuscular Hemoglobin 32 PG (27-34); Mean Corpuscular Volume 98.3 FL (87-102); Mean Platelet Volume 12.8 FL (9.6-12.0); Monocytes # 0.9 10*3/uL (0.11-0.8); Neutrophils # 13.7 10*3/uL (1.4-7.4); Neutrophils % 78.4 % (38.7-73.9); Platelet Count 172 T/CUMM (130-400); Red Blood Count 3.02 MC/CUMM (3.8-5.5); Red Cell Distribution Width 15.8 % (9.3-17.3); White Blood Count 17.5 T/CUMM (4-12)
[2017-10-14 07:10] LABS: Albumin 2.9 G/DL (3.4-5.0); Bilirubin,Total 0.5 MG/DL (0.2-1.0); Calcium 8.2 MG/DL (8.5-10.1); Osmolality,Calculated 294.4 MOS/KG (273-304); Potassium 4.5 MMOL/L (3.5-5.1); Total Protein 6.5 G/DL (6.4-8.3)
[2017-10-14] MEDS: ALLOPURINOL 300 MG TABLET PO SCH (09:30)
[2017-10-14] MEDS: METOPROLOL SUCCINATE XL 25 MG TABLET PO SCH (09:30)
[2017-10-14] MEDS: SIMVASTATIN 40 MG TABLET PO SCH (09:30)
[2017-10-14] MEDS: CINACALCET 30 MG TABLET PO SCH (09:30)
[2017-10-14] MEDS: predniSONE 10 MG TABLET PO SCH (09:30)
[2017-10-14] MEDS: MEROPENEM 500 MG in SODIUM CHLORIDE 0.9% 100 ML IV SCH (09:31)
[2017-10-14] MEDS: PANTOPRAZOLE 40 MG TABLET PO SCH (09:31)
[2017-10-14] MEDS: SEVELAMER CARBONATE 800 MG TABLET PO SCH ×3 (09:31→16:39)
[2017-10-14] MEDS: MEGESTROL 400 MG/10 ML UDCUP PO SCH (09:31)
[2017-10-14] MEDS: ASPIRIN EC 81 MG TABLET PO SCH (09:31)
[2017-10-14] MEDS ORDERED: VANCOMYCIN INJ 500 MG in SODIUM CHLORIDE 0.9% 100 ML IV PRN (10:26)
[2017-10-14] MEDS: ALFUZOSIN 10 MG TABLET PO SCH (11:04)
[2017-10-14] MEDS ORDERED: VANCOMYCIN INJ 1,250 MG in SODIUM CHLORIDE 0.9% 250 ML IV ONE (11:30)
[2017-10-15] MEDS ORDERED: LIDOCAINE/PRILOCAINE CREAM 5 GM TUBE TOP SCH (08:00)
[2017-10-15 08:08] LABS: Basophils # 0.1 10*3/uL (0.0-0.2); Basophils % 0.3 % (0.0-0.8); Eosinophils # 0.1 10*3/uL (0.0-0.87); Eosinophils % 0.3 % (0.00-10.9); Hematocrit 32.3 VOL% (42.0-52.0); Hemoglobin 10.5 GM/DL (14.0-18.0); Immature Granulocytes % 0.8 %; Immature Granulocytes Absolute 0.14 #; Lymphocytes # 3.8 10*3/uL (1.4-4.0); Mean Corpuscular HGB Conc 32.5 GM/DL (32-36); Mean Corpuscular Hemoglobin 32 PG (27-34); Mean Corpuscular Volume 98.2 FL (87-102); Mean Platelet Volume 12.8 FL (9.6-12.0); Monocytes # 0.8 10*3/uL (0.11-0.8); Monocytes % 4.4 % (1.7-12.7); Neutrophils # 12.4 10*3/uL (1.4-7.4); Neutrophils % 72.2 % (38.7-73.9); Platelet Count 224 T/CUMM (130-400); Red Blood Count 3.29 MC/CUMM (3.8-5.5); Red Cell Distribution Width 15.8 % (9.3-17.3); White Blood Count 17.2 T/CUMM (4-12)
[2017-10-15 08:21] VITALS: BP 140/98
[2017-10-15] MEDS: METOPROLOL SUCCINATE XL 25 MG TABLET PO SCH (09:39)
[2017-10-15] MEDS: ALFUZOSIN 10 MG TABLET PO SCH (09:40)
[2017-10-15] MEDS: CINACALCET 30 MG TABLET PO SCH (09:40)
[2017-10-15] MEDS: predniSONE 10 MG TABLET PO SCH (09:41)
[2017-10-15] MEDS: ALLOPURINOL 300 MG TABLET PO SCH (09:41)
[2017-10-15] MEDS: PANTOPRAZOLE 40 MG TABLET PO SCH (09:41)
[2017-10-15] MEDS: SIMVASTATIN 40 MG TABLET PO SCH (09:41)
[2017-10-15] MEDS: SEVELAMER CARBONATE 800 MG TABLET PO SCH ×2 (09:41→14:05)
[2017-10-15] MEDS: MEROPENEM 500 MG in SODIUM CHLORIDE 0.9% 100 ML IV SCH (12:26)
[2017-10-15] MEDS ORDERED: AMOXICILLIN 500 MG CAPSULE PO SCH (13:00)
[2017-10-15] MEDS: MEGESTROL 400 MG/10 ML UDCUP PO SCH (14:05)
[2017-10-15] MEDS: ASPIRIN EC 81 MG TABLET PO SCH (14:05)
[2017-10-15] MEDS ORDERED: VANCOMYCIN INJ 500 MG in SODIUM CHLORIDE 0.9% 100 ML IV ONE (16:00)
== END 2017-10-15 15:09 | disposition home or self-care (01) | DRG 690 ==
LOC: N.ED 06:04 → N.EDINP 08:36 → N.2E 14:09
PROVIDERS: ADMIT Hospitalist; ATTEND Hospitalist

== ENCOUNTER 2017-10-19 08:58 | Inpatient (IN) ==
[2017-10-19] MEDS ORDERED: ONDANSETRON 4 MG/2 ML VIAL IV STA (09:17)
[2017-10-19] MEDS ORDERED: PIPERACILLIN/TAZOBACTAM 3,375 MG in SODIUM CHLORIDE 0.9% 100 ML IV STA (09:17)
[2017-10-19] MEDS ORDERED: HYDROmorphone 2 MG/1 ML VIAL IV STA ×3 (09:22→12:23)
[2017-10-19] MEDS ORDERED: PROMETHAZINE INJ 25 MG in SODIUM CHLORIDE 0.9% 50 ML IV STA (09:48)
[2017-10-19 09:52] LABS: Basophils # 0.1 10*3/uL (0.0-0.2); Basophils % 0.2 % (0.0-0.8); Eosinophils % 0.1 % (0.00-10.9); Hematocrit 31.7 VOL% (42.0-52.0); Hemoglobin 10.9 GM/DL (14.0-18.0); Immature Granulocytes % 0.9 %; Immature Granulocytes Absolute 0.31 #; Lymphocytes # 4.6 10*3/uL (1.4-4.0); Lymphocytes % 13.2 % (21.2-54.2); Mean Corpuscular HGB Conc 34.4 GM/DL (32-36); Mean Corpuscular Hemoglobin 32 PG (27-34); Mean Corpuscular Volume 93.8 FL (87-102); Monocytes # 1.8 10*3/uL (0.11-0.8); Monocytes % 5.1 % (1.7-12.7); Neutrophils # 28.1 10*3/uL (1.4-7.4); Neutrophils % 80.5 % (38.7-73.9); Platelet Count 263 T/CUMM (130-400); Red Blood Count 3.38 MC/CUMM (3.8-5.5); White Blood Count 34.9 T/CUMM (4-12)
[2017-10-19 10:19] LABS: Alanine Aminotransferase 14 U/L (16-61); Albumin 3.5 G/DL (3.4-5.0); Alkaline Phosphatase 63 U/L (45-117); Aspartate Amino Transferase 11 U/L (0-37); Blood Urea Nitrogen 53 MG/DL (7-18); Calcium 9.4 MG/DL (8.5-10.1); Glucose 117 MG/DL (74-106); Osmolality,Calculated 295.3 MOS/KG (273-304); Sodium 141 MMOL/L (136-145); Total Protein 6.9 G/DL (6.4-8.3)
[2017-10-19] MEDS ORDERED: PROMETHAZINE 25 MG/1 ML VIAL ONE (10:19)
[2017-10-19] MEDS ORDERED: PROMETHAZINE 25 MG/1 ML VIAL IM STA (10:29)
[2017-10-19 10:31] LABS: Hypochromasia 1+; Lymphocytes 12 % (20-55); Ovalocytes Slight; Platelet Estimate Adequate; Segmented Neutrophils 85 % (50-85); Total Cells Counted 100
[2017-10-19 10:32] LABS: Lactic Acid 4.2 MMOL/L (0.4-2.0)
[2017-10-19 10:38] LABS: Apearance,Urine CLEAR (Clear); Bacteria,Urine Occasional /HPF (Few); Bilirubin,Urine Negative (Negative); Blood, Urine Negative (Negative); Glucose,Urine (UA) Negative (Negative); Ketones,Urine Negative (Negative); Nitrite,Urine Negative (Negative); Protein,Urine 100 MG/DL; RBC,Urine 2 /HPF (0-4); Urine Color Yellow (Yellow); Urine Urobilinogen < 2.0 EU/DL (0.2-1.0); WBC,Urine 3 /HPF (0-6)
[2017-10-19] MEDS ORDERED: SODIUM CHLORIDE 0.9% 500 ML IV STA (10:39)
[2017-10-19] MEDS ORDERED: ACETAMINOPHEN 325 MG TABLET PO PRN (11:25)
[2017-10-19] MEDS ORDERED: SILDENAFIL 20 MG TABLET PO PRN (11:29)
[2017-10-19] MEDS ORDERED: PROMETHAZINE 25 MG TABLET PO PRN (11:29)
[2017-10-19] MEDS ORDERED: SODIUM CHLORIDE 0.9% 1,000 ML IV ONE (11:32)
[2017-10-19 11:40] LABS: ABG Base Excess 4.5 MMOL/L (-2.5-2.5); ABG HCO3 22.8 MMOL/L (20-26); ABG Oxygen Saturation 98.2 % (95-100); ABG PO2 124.5 MM HG (80-95); ABG TCO2 23.4 MMOL/L (23-27)
[2017-10-19 11:45] LABS: ABG PH 7.728 (7.35-7.45)
[2017-10-19 11:46] LABS: ABG PCO2 17.7 MM HG (35-48)
[2017-10-19] MEDS ORDERED: metroNIDAZOLE INJ 500 MG in PREMIX 1 EACH IV SCH (12:00)
[2017-10-19] MEDS ORDERED: CIPROFLOXACIN INJ 400 MG in PREMIX 1 EACH IV SCH (12:00)
[2017-10-19 13:48] LABS: ABG Base Excess 1.7 MMOL/L (-2.5-2.5); ABG HCO3 22.4 MMOL/L (20-26); ABG Oxygen Saturation 97.7 % (95-100); ABG PO2 105.9 MM HG (80-95); ABG TCO2 23.1 MMOL/L (23-27)
[2017-10-19 13:50] LABS: ABG PH 7.606 (7.35-7.45)
[2017-10-19] MEDS ORDERED: LIDOCAINE/PRILOCAINE CREAM 5 GM TUBE TOP SCH (14:00)
[2017-10-19 14:25] LABS: Calcium 8.5 MG/DL (8.5-10.1); Osmolality,Calculated 294.4 MOS/KG (273-304); Potassium 4.1 MMOL/L (3.5-5.1)
[2017-10-19] MEDS: predniSONE 10 MG TABLET PO SCH (14:34)
[2017-10-19] MEDS: ASPIRIN EC 81 MG TABLET PO SCH (14:34)
[2017-10-19] MEDS: PANTOPRAZOLE 40 MG TABLET PO SCH (14:34)
[2017-10-19] MEDS: METOPROLOL SUCCINATE XL 25 MG TABLET PO SCH (14:35)
[2017-10-19] MEDS: CINACALCET 30 MG TABLET PO SCH (14:35)
[2017-10-19] MEDS: CIPROFLOXACIN INJ 400 MG in PREMIX 1 EACH IV SCH (14:38)
[2017-10-19] MEDS: NICOTINE 14 MG/24 HR PATCH TRANSDERM SCH (14:38)
[2017-10-19] MEDS: MORPHINE 4 MG/1 ML VIAL IV PRN ×2 (15:33→19:29)
[2017-10-19] MEDS: SEVELAMER CARBONATE 800 MG TABLET PO SCH (16:50)
[2017-10-19] MEDS: ONDANSETRON 4 MG/2 ML VIAL IV PRN (19:29)
[2017-10-19] MEDS: ENOXAPARIN 30 MG/0.3 ML SYRINGE SUBCUT SCH (21:08)
[2017-10-19] MEDS: SIMVASTATIN 40 MG TABLET PO SCH (21:08)
[2017-10-19] MEDS: PIPERACILLIN/TAZOBACTAM 3,375 MG in SODIUM CHLORIDE 0.9% 100 ML IV SCH (21:22)
[2017-10-20] MEDS: CIPROFLOXACIN INJ 400 MG in PREMIX 1 EACH IV SCH (01:38)
[2017-10-20] MEDS: ONDANSETRON 4 MG/2 ML VIAL IV PRN ×4 (04:51→23:11)
[2017-10-20] MEDS: MORPHINE 4 MG/1 ML VIAL IV PRN ×2 (04:51→13:18)
[2017-10-20 05:34] LABS: Basophils # 0.1 10*3/uL (0.0-0.2); Basophils % 0.3 % (0.0-0.8); Eosinophils # 0.1 10*3/uL (0.0-0.87); Eosinophils % 0.3 % (0.00-10.9); Hematocrit 33.3 VOL% (42.0-52.0); Hemoglobin 11.2 GM/DL (14.0-18.0); Immature Granulocytes % 1.3 %; Immature Granulocytes Absolute 0.38 #; Lymphocytes # 4.3 10*3/uL (1.4-4.0); Lymphocytes % 14.2 % (21.2-54.2); Mean Corpuscular HGB Conc 33.6 GM/DL (32-36); Mean Corpuscular Hemoglobin 32 PG (27-34); Mean Corpuscular Volume 95.1 FL (87-102); Mean Platelet Volume 12.3 FL (9.6-12.0); Monocytes # 1.7 10*3/uL (0.11-0.8); Monocytes % 5.6 % (1.7-12.7); Neutrophils # 23.8 10*3/uL (1.4-7.4); Neutrophils % 78.3 % (38.7-73.9); Platelet Count 265 T/CUMM (130-400); Red Cell Distribution Width 16.3 % (9.3-17.3); White Blood Count 30.3 T/CUMM (4-12)
[2017-10-20 05:55] LABS: Hypochromasia 1+; Platelet Estimate Adequate
[2017-10-20 06:15] LABS: Albumin 3.4 G/DL (3.4-5.0); Bilirubin,Total 0.8 MG/DL (0.2-1.0); Calcium 9.7 MG/DL (8.5-10.1); Osmolality,Calculated 290.7 MOS/KG (273-304); Potassium 5.9 MMOL/L (3.5-5.1)
[2017-10-20] MEDS ORDERED: LIDOCAINE/PRILOCAINE CREAM 5 GM TUBE TOP SCH (08:09)
[2017-10-20] MEDS: SEVELAMER CARBONATE 800 MG TABLET PO SCH ×3 (08:50→17:43)
[2017-10-20] MEDS: PIPERACILLIN/TAZOBACTAM 3,375 MG in SODIUM CHLORIDE 0.9% 100 ML IV SCH ×2 (08:50→21:50)
[2017-10-20] MEDS: ALLOPURINOL 300 MG TABLET PO SCH ×2 (08:56→14:55)
[2017-10-20] MEDS: CINACALCET 30 MG TABLET PO SCH ×2 (08:56→14:53)
[2017-10-20] MEDS: ASPIRIN EC 81 MG TABLET PO SCH ×2 (08:56→14:55)
[2017-10-20] MEDS: METOPROLOL SUCCINATE XL 25 MG TABLET PO SCH ×2 (08:56→14:54)
[2017-10-20] MEDS: PANTOPRAZOLE 40 MG TABLET PO SCH ×2 (08:56→14:54)
[2017-10-20] MEDS: predniSONE 10 MG TABLET PO SCH ×2 (08:56→14:54)
[2017-10-20] MEDS: ALFUZOSIN 10 MG TABLET PO SCH ×2 (08:56→14:53)
[2017-10-20] MEDS ORDERED: VANCOMYCIN INJ 1,000 MG in SODIUM CHLORIDE 0.9% 250 ML IV SCH (10:30)
[2017-10-20] MEDS: NICOTINE 14 MG/24 HR PATCH TRANSDERM SCH (10:50)
[2017-10-20] MEDS: DEXTROSE 5% 1,000 ML IV SCH (11:12)
[2017-10-20] MEDS ORDERED: VANCOMYCIN INJ 1,250 MG in SODIUM CHLORIDE 0.9% 250 ML IV ONE (16:00)
[2017-10-20] MEDS ORDERED: MORPHINE 4 MG/1 ML VIAL IV ONE (16:02)
[2017-10-20] MEDS: SIMVASTATIN 40 MG TABLET PO SCH (21:54)
[2017-10-20] MEDS: ENOXAPARIN 30 MG/0.3 ML SYRINGE SUBCUT SCH (21:56)
[2017-10-21] MEDS: CIPROFLOXACIN INJ 400 MG in PREMIX 1 EACH IV SCH (01:56)
[2017-10-21 05:56] LABS: Calcium 8.9 MG/DL (8.5-10.1); Potassium 4.1 MMOL/L (3.5-5.1)
[2017-10-21] MEDS ORDERED: VANCOMYCIN 50 MG/ML 60 ML/BOTTLE PO SCH (06:00)
[2017-10-21 07:44] LABS: Basophils # 0.1 10*3/uL (0.0-0.2); Basophils % 0.3 % (0.0-0.8); Eosinophils # 0.1 10*3/uL (0.0-0.87); Eosinophils % 0.7 % (0.00-10.9); Hematocrit 30.5 VOL% (42.0-52.0); Hemoglobin 10.2 GM/DL (14.0-18.0); Immature Granulocytes % 0.8 %; Immature Granulocytes Absolute 0.15 #; Lymphocytes % 15.8 % (21.2-54.2); Mean Corpuscular HGB Conc 33.4 GM/DL (32-36); Mean Corpuscular Hemoglobin 32 PG (27-34); Mean Corpuscular Volume 94.4 FL (87-102); Mean Platelet Volume 12.3 FL (9.6-12.0); Monocytes % 5.3 % (1.7-12.7); Neutrophils # 14.7 10*3/uL (1.4-7.4); Neutrophils % 77.1 % (38.7-73.9); Red Blood Count 3.23 MC/CUMM (3.8-5.5); Red Cell Distribution Width 15.9 % (9.3-17.3)
[2017-10-21 07:48] LABS: Platelet Count 210 T/CUMM (130-400)
[2017-10-21] MEDS: NICOTINE 14 MG/24 HR PATCH TRANSDERM SCH (09:00)
[2017-10-21] MEDS: METOPROLOL SUCCINATE XL 25 MG TABLET PO SCH (09:30)
[2017-10-21] MEDS: ALFUZOSIN 10 MG TABLET PO SCH (09:30)
[2017-10-21] MEDS: DEXTROSE 5% 1,000 ML IV SCH (09:30)
[2017-10-21] MEDS: SEVELAMER CARBONATE 800 MG TABLET PO SCH ×3 (09:30→16:57)
[2017-10-21] MEDS: CINACALCET 30 MG TABLET PO SCH (09:30)
[2017-10-21] MEDS: ALLOPURINOL 300 MG TABLET PO SCH (09:30)
[2017-10-21] MEDS: PANTOPRAZOLE 40 MG TABLET PO SCH (09:30)
[2017-10-21] MEDS: predniSONE 10 MG TABLET PO SCH (09:31)
[2017-10-21] MEDS: ASPIRIN EC 81 MG TABLET PO SCH (09:31)
[2017-10-21] MEDS: MORPHINE 4 MG/1 ML VIAL IV PRN (11:30)
[2017-10-21] MEDS: ONDANSETRON 4 MG/2 ML VIAL IV PRN (11:32)
[2017-10-21] MEDS: VANCOMYCIN 50 MG/ML 60 ML/BOTTLE PO SCH ×2 (15:59→23:00)
[2017-10-21] MEDS: SIMVASTATIN 40 MG TABLET PO SCH (23:02)
[2017-10-21] MEDS: ENOXAPARIN 30 MG/0.3 ML SYRINGE SUBCUT SCH (23:05)
[2017-10-22] MEDS: CIPROFLOXACIN INJ 400 MG in PREMIX 1 EACH IV SCH (02:44)
[2017-10-22] MEDS: DEXTROSE 5% 1,000 ML IV SCH (03:30)
[2017-10-22] MEDS: VANCOMYCIN 50 MG/ML 60 ML/BOTTLE PO SCH ×2 (03:50→13:19)
[2017-10-22 06:28] LABS: Basophils % 0.2 % (0.0-0.8); Eosinophils # 0.1 10*3/uL (0.0-0.87); Hematocrit 27.1 VOL% (42.0-52.0); Hemoglobin 9.2 GM/DL (14.0-18.0); Immature Granulocytes % 0.8 %; Immature Granulocytes Absolute 0.11 #; Lymphocytes # 3.2 10*3/uL (1.4-4.0); Mean Corpuscular HGB Conc 33.9 GM/DL (32-36); Mean Corpuscular Hemoglobin 32 PG (27-34); Mean Corpuscular Volume 93.1 FL (87-102); Mean Platelet Volume 12.6 FL (9.6-12.0); Monocytes # 0.8 10*3/uL (0.11-0.8); Monocytes % 6.3 % (1.7-12.7); Neutrophils # 8.9 10*3/uL (1.4-7.4); Neutrophils % 67.7 % (38.7-73.9); Platelet Count 211 T/CUMM (130-400); Red Blood Count 2.91 MC/CUMM (3.8-5.5); Red Cell Distribution Width 15.5 % (9.3-17.3); White Blood Count 13.2 T/CUMM (4-12)
[2017-10-22 06:57] LABS: Calcium 7.9 MG/DL (8.5-10.1); Osmolality,Calculated 276.5 MOS/KG (273-304); Potassium 4.2 MMOL/L (3.5-5.1)
[2017-10-22] MEDS ORDERED: predniSONE 5 MG TABLET PO SCH (09:00)
[2017-10-22] MEDS: SEVELAMER CARBONATE 800 MG TABLET PO SCH ×2 (12:31→13:17)
[2017-10-22] MEDS: METOPROLOL SUCCINATE XL 25 MG TABLET PO SCH (13:15)
[2017-10-22] MEDS: ALLOPURINOL 300 MG TABLET PO SCH (13:17)
[2017-10-22] MEDS: NICOTINE 14 MG/24 HR PATCH TRANSDERM SCH ×2 (13:17→13:30)
[2017-10-22] MEDS: CINACALCET 30 MG TABLET PO SCH (13:17)
[2017-10-22] MEDS: ALFUZOSIN 10 MG TABLET PO SCH (13:17)
[2017-10-22] MEDS: ASPIRIN EC 81 MG TABLET PO SCH (13:18)
[2017-10-22] MEDS: PANTOPRAZOLE 40 MG TABLET PO SCH (13:18)
[2017-10-22 13:34] VITALS: BP 104/64
== END 2017-10-22 14:17 | disposition home or self-care (01) | DRG 871 ==
LOC: EDUNIT# → N.ED 08:58 → N.EDINP 11:25 → SUATTDRO 11:25 → N.2E 12:35
PROVIDERS: ADMIT Internal Medicine; ATTEND Hospitalist

== ENCOUNTER 2018-06-23 07:03 | Observation (INO) ==
[2018-06-23] MEDS ORDERED: METOPROLOL TARTRATE 5 MG/5 ML VIAL IV STA (07:16)
[2018-06-23] MEDS ORDERED: FUROSEMIDE 100 MG/10 ML VIAL IV STA (07:16)
[2018-06-23 07:50] LABS: Basophils # 0.1 10*3/uL (0.0-0.2); Basophils % 0.5 % (0.0-0.8); Eosinophils # 0.1 10*3/uL (0.0-0.87); Eosinophils % 0.5 % (0.00-10.9); Hematocrit 39.1 VOL% (42.0-52.0); Hemoglobin 12.3 GM/DL (14.0-18.0); Immature Granulocytes % 0.7 %; Lymphocytes # 4.8 10*3/uL (1.4-4.0); Lymphocytes % 32.5 % (21.2-54.2); Mean Corpuscular HGB Conc 31.5 GM/DL (32-36); Mean Platelet Volume 12.7 FL (9.6-12.0); Monocytes % 9.2 % (1.7-12.7); Neutrophils % 56.6 % (38.7-73.9); Platelet Count 103 T/CUMM (130-400); Red Blood Count 4.03 MC/CUMM (3.8-5.5); Red Cell Distribution Width 19.5 % (9.3-17.3); White Blood Count 14.7 T/CUMM (4-12)
[2018-06-23 07:59] LABS: INR 0.9; PT Patient Result 10.3 SECS; Partial Thromboplastin Time 26.5 SECS (0-40)
[2018-06-23 08:15] LABS: Albumin 4.1 G/DL (3.4-5.0); Bilirubin,Total 0.5 MG/DL (0.2-1.0); Calcium 9.7 MG/DL (8.5-10.1); Osmolality,Calculated 290.7 MOS/KG (273-304); Total Protein 7.6 G/DL (6.4-8.3)
[2018-06-23] MEDS ORDERED: ONDANSETRON 4 MG/2 ML VIAL IV PRN (08:58)
[2018-06-23] MEDS ORDERED: BISACODYL 5 MG TABLET PO PRN (08:58)
[2018-06-23] MEDS ORDERED: ACETAMINOPHEN 325 MG TABLET PO PRN (08:58)
[2018-06-23] MEDS ORDERED: PROMETHAZINE 25 MG/1 ML VIAL IM PRN (08:58)
[2018-06-23] MEDS ORDERED: VANCOMYCIN INJ 1,000 MG in SODIUM CHLORIDE 0.9% 250 ML IV ONE (10:30)
[2018-06-23] MEDS: cefTRIAXone 1,000 MG in SYRINGE 1 EACH IV SCH (12:59)
[2018-06-23] MEDS ORDERED: LIDOCAINE/PRILOCAINE CREAM 5 GM TUBE TOP SCH (16:00)
[2018-06-23] MEDS: METOPROLOL SUCCINATE XL 25 MG TABLET PO SCH (16:26)
[2018-06-23] MEDS: ALFUZOSIN 10 MG TABLET PO SCH (16:26)
[2018-06-23] MEDS: SIMVASTATIN 40 MG TABLET PO SCH (16:26)
[2018-06-23] MEDS: PANTOPRAZOLE 40 MG TABLET PO SCH (16:26)
[2018-06-23] MEDS: CINACALCET 30 MG TABLET PO SCH (16:26)
[2018-06-23] MEDS: ALLOPURINOL 300 MG TABLET PO SCH (16:26)
[2018-06-23] MEDS: SEVELAMER CARBONATE 800 MG TABLET PO SCH (16:27)
[2018-06-23] MEDS: ASPIRIN EC 81 MG TABLET PO SCH (16:27)
[2018-06-23] MEDS ORDERED: NF- (Sucroferric Oxyhydroxide [Velphoro] 500 MG) PO SCH (21:00)
[2018-06-24 05:55] LABS: Basophils # 0.1 10*3/uL (0.0-0.2); Basophils % 0.4 % (0.0-0.8); Eosinophils # 0.1 10*3/uL (0.0-0.87); Eosinophils % 1.1 % (0.00-10.9); Hematocrit 34.5 VOL% (42.0-52.0); Immature Granulocytes % 0.7 %; Immature Granulocytes Absolute 0.08 #; Lymphocytes # 2.9 10*3/uL (1.4-4.0); Lymphocytes % 25.4 % (21.2-54.2); Mean Corpuscular HGB Conc 31.9 GM/DL (32-36); Mean Corpuscular Volume 96.6 FL (87-102); Mean Platelet Volume 13.8 FL (9.6-12.0); Monocytes % 10.2 % (1.7-12.7); Neutrophils % 62.2 % (38.7-73.9); Red Blood Count 3.57 MC/CUMM (3.8-5.5); Red Cell Distribution Width 18.6 % (9.3-17.3); White Blood Count 11.3 T/CUMM (4-12)
[2018-06-24 05:56] LABS: Platelet Count 84 T/CUMM (130-400)
[2018-06-24 06:14] LABS: Hypochromasia 1+; Platelet Estimate Decreased
[2018-06-24 06:16] LABS: Alanine Aminotransferase < 6 U/L (16-61); Albumin 3.4 G/DL (3.4-5.0); Alkaline Phosphatase 59 U/L (45-117); Aspartate Amino Transferase 13 U/L (0-37); Blood Urea Nitrogen 76 MG/DL (7-18); Calcium 8.8 MG/DL (8.5-10.1); Glucose 78 MG/DL (74-106); HDL Cholesterol 47 MG/DL (40-60); Osmolality,Calculated 294.8 MOS/KG (273-304); Risk Ratio 2.98; Triglycerides 159 MG/DL (2-150); VLDL CHOLESTEROL 31.8 MG/DL
[2018-06-24 07:02] VITALS: BP 126/76
[2018-06-24] MEDS: PANTOPRAZOLE 40 MG TABLET PO SCH (08:50)
[2018-06-24] MEDS: ASPIRIN EC 81 MG TABLET PO SCH (08:50)
[2018-06-24] MEDS: ALFUZOSIN 10 MG TABLET PO SCH (08:50)
[2018-06-24] MEDS: ALLOPURINOL 300 MG TABLET PO SCH (08:50)
[2018-06-24] MEDS: SIMVASTATIN 40 MG TABLET PO SCH (08:50)
[2018-06-24] MEDS: SEVELAMER CARBONATE 800 MG TABLET PO SCH ×2 (08:50→13:25)
[2018-06-24] MEDS: CINACALCET 30 MG TABLET PO SCH (08:50)
[2018-06-24] MEDS: METOPROLOL SUCCINATE XL 25 MG TABLET PO SCH (08:51)
[2018-06-24] MEDS ORDERED: predniSONE 10 MG TABLET PO SCH (09:00)
[2018-06-24] MEDS ORDERED: HEPARIN 10,000 UNIT/10 ML VIAL IV SCH (11:00)
[2018-06-24] MEDS ORDERED: VANCOMYCIN INJ 1,000 MG in SODIUM CHLORIDE 0.9% 250 ML IV ONE ×4 (11:00)
[2018-06-24] MEDS: cefTRIAXone 1,000 MG in SYRINGE 1 EACH IV SCH (14:09)
== END 2018-06-24 15:28 | disposition home or self-care (01) ==
LOC: N.ED 07:03 → SUATTDRO 08:57 → INTOOBSV 08:57 → N.EDINP 08:58 → N.5E 11:37
PROVIDERS: ADMIT Internal Medicine; ATTEND Internal Medicine Cardiovascular Disease

== ENCOUNTER 2022-01-27 09:56 | Observation (INO) ==
[2022-01-27] MEDS ORDERED: MORPHINE 2 MG/1 ML SYRINGE IV ONE ×2 (10:20→11:35)
[2022-01-27] MEDS ORDERED: ONDANSETRON 4 MG/2 ML VIAL IV ONE ×2 (10:20→11:35)
[2022-01-27 10:40] LABS: Basophils % 0.3 % (0.0-0.8); Eosinophils % 0.1 % (0.00-10.9); Hemoglobin 11.8 GM/DL (14.0-18.0); Immature Granulocytes % 0.3 %; Immature Granulocytes Absolute 0.04 #; Lymphocytes # 0.8 10*3/uL (1.4-4.0); Lymphocytes % 6.3 % (21.2-54.2); Mean Corpuscular HGB Conc 34.7 GM/DL (32-36); Mean Corpuscular Volume 94.4 FL (87-102); Mean Platelet Volume 13.4 FL (9.6-12.0); Monocytes # 0.6 10*3/uL (0.11-0.8); Monocytes % 4.7 % (1.7-12.7); Neutrophils % 88.3 % (38.7-73.9); Platelet Count 196 T/CUMM (130-400); Red Cell Distribution Width 15.7 % (9.3-17.3); White Blood Count 11.8 T/CUMM (4-12)
[2022-01-27 10:48] LABS: PT Patient Result 11.4 SECS (10.1-12.1)
[2022-01-27 10:58] LABS: Albumin 3.6 G/DL (3.4-5.0); Bilirubin,Total 0.5 MG/DL (0.20-1.00); Calcium 9.3 MG/DL (8.5-10.1); Osmolality,Calculated 280.1 MOS/KG (273-304); Potassium 3.5 MMOL/L (3.5-5.1); Total Protein 7.4 G/DL (6.4-8.2)
[2022-01-27] MEDS ORDERED: DICYCLOMINE 20 MG/2 ML AMP IM ONE (11:35)
[2022-01-27] MEDS ORDERED: ONDANSETRON 4 MG/2 ML VIAL IV PRN (11:44)
[2022-01-27] MEDS ORDERED: PROMETHAZINE 25 MG/1 ML VIAL IM PRN (11:44)
[2022-01-27] MEDS ORDERED: MORPHINE 2 MG/1 ML SYRINGE IV PRN (11:44)
[2022-01-27] MEDS ORDERED: NALOXONE 0.4 MG/ML VIAL IV PRN (11:44)
[2022-01-27] MEDS ORDERED: ACETAMINOPHEN 325 MG TABLET PO PRN (11:44)
[2022-01-27] MEDS: ENOXAPARIN 30 MG/0.3 ML SYRINGE SUBCUT SCH (12:21)
[2022-01-27] MEDS: DOCUSATE SODIUM 100 MG CAPSULE PO SCH (21:32)
[2022-01-28 06:29] LABS: Basophils # 0.1 10*3/uL (0.0-0.2); Basophils % 0.5 % (0.0-0.8); Eosinophils # 0.1 10*3/uL (0.0-0.87); Eosinophils % 0.5 % (0.00-10.9); Hematocrit 32.7 VOL% (42.0-52.0); Immature Granulocytes % 0.3 %; Immature Granulocytes Absolute 0.03 #; Lymphocytes # 3.5 10*3/uL (1.4-4.0); Lymphocytes % 33.9 % (21.2-54.2); Mean Corpuscular HGB Conc 33.6 GM/DL (32-36); Mean Corpuscular Volume 98.2 FL (87-102); Mean Platelet Volume 13.7 FL (9.6-12.0); Monocytes # 1.1 10*3/uL (0.11-0.8); Monocytes % 10.6 % (1.7-12.7); Neutrophils % 54.2 % (38.7-73.9); Platelet Count 181 T/CUMM (130-400); Red Blood Count 3.33 MC/CUMM (3.8-5.5); Red Cell Distribution Width 16.1 % (9.3-17.3); White Blood Count 10.5 T/CUMM (4-12)
[2022-01-28 06:32] LABS: Calcium 8.6 MG/DL (8.5-10.1); Osmolality,Calculated 287.5 MOS/KG (273-304); Potassium 4.4 MMOL/L (3.5-5.1)
[2022-01-28 06:48] LABS: Albumin 3.3 G/DL (3.4-5.0); Bilirubin,Total 0.4 MG/DL (0.20-1.00); Calcium 8.7 MG/DL (8.5-10.1); Osmolality,Calculated 284.7 MOS/KG (273-304); Potassium 4.4 MMOL/L (3.5-5.1); Total Protein 6.7 G/DL (6.4-8.2)
[2022-01-28] MEDS ORDERED: PANTOPRAZOLE 40 MG TABLET PO SCH (09:00)
[2022-01-28] MEDS: DOCUSATE SODIUM 100 MG CAPSULE PO SCH (10:22)
[2022-01-28 12:43] VITALS: BP 136/83
[2022-01-28] MEDS: ENOXAPARIN 30 MG/0.3 ML SYRINGE SUBCUT SCH (14:50)
== END 2022-01-28 19:28 | disposition home or self-care (01) ==
LOC: N.EDINP 09:56 → N.ED 09:56 → N.EDINP 18:00 → N.2W 18:24
PROVIDERS: ADMIT Internal Medicine; ATTEND Internal Medicine